=== PATIENT | male | born 1975 | race Two or more races ===

== ENCOUNTER 2016-09-10 11:08 | Inpatient (IN) | payer OTHER ==
[~2016-09-10] VITALS: Ht 180.3 cm; Wt 80.2 kg
[2016-09-10] VITALS (20 sets, daily range): BP systolic 101–127; BP diastolic 58–78; PULSE 64–98; RESP 16–28; Ht 180.3 cm; Wt 80.2 kg
[~2016-09-10 11:08] MED LIST: ROCURONIUM 50 MG INJ ONE; SUCCINYLCHOLINE CHLORIDE 100 MG/5 ML SYG IV ONE
[2016-09-10] MEDS ORDERED: ROPIVACAINE 0.5 % 30 ML VIAL ONE (13:52)
[2016-09-10] MEDS ORDERED: PROPOFOL 20 ML ONE (13:53)
[2016-09-10] MEDS ORDERED: LIDOCAINE 2% (SDV) 5 ML INJ ONE (13:53)
[2016-09-10] MEDS ORDERED: CEFAZOLIN 1 GM INJ ONE (13:56)
--- NOTE | 2016-09-10 14:26 | HPN ---
Date/Time of Note Date/Time of Note DATE: 09/10/16 TIME: 14:25 Interval H&P Admission Note Pt. seen H&P reviewed: No system changes JESSIE HARDING MD Sep 10, 2016 14:26
[2016-09-10] MEDS ORDERED: POLYMYXIN/BACITRACIN 1L IRRIG IRR ONE (15:57)
[2016-09-10] MEDS: SOD CHLORIDE 0.9% 1,000 ML IV SCH (17:28)
[2016-09-10] MEDS ORDERED: OXYCODONE/ACETAMINOPHEN (5/325) TAB PO PRN ×2 (17:30)
[2016-09-10] MEDS ORDERED: DIPHENHYDRAMINE 50 MG INJ IV PRN (17:30)
[2016-09-10] MEDS ORDERED: HYDROmorphONE (0.2 MG/ML) 10ML SYG IV PRN ×2 (17:30)
[2016-09-10] MEDS ORDERED: ONDANSETRON 4 MG INJ IV PRN (17:30)
[2016-09-10] MEDS ORDERED: FENTAnyl 50 MCG/ML VIAL IV PRN ×2 (17:30)
[2016-09-10] MEDS ORDERED: MIDAZOLAM 1 MG/ML 2 ML INJ IV PRN (17:30)
[2016-09-10] MEDS ORDERED: NACL 0.9% 3 ML SYG IV SCH (17:30)
[2016-09-10] MEDS ORDERED: METOCLOPRAMIDE 10 MG INJ IV PRN (17:30)
[2016-09-10] MEDS: MEPERIDINE 25 MG INJ IV PRN ×2 (17:38→21:19)
[2016-09-10] MEDS ORDERED: HYDROCODONE/APAP (5/325) TAB PO PRN (18:00)
--- NOTE | 2016-09-10 18:21 | OPR ---
DATE OF OPERATION: 09/10/2016 PREOPERATIVE DIAGNOSIS: Shoulder impingement syndrome with tear of the rotator cuff. POSTOPERATIVE DIAGNOSIS: Shoulder impingement syndrome with tear of the rotator cuff. OPERATION PERFORMED: 1. Surgical decompression of the right shoulder, including partial acromionectomy and release of th e coracoacromial ligament. 2. Repair of the rotator cuff tear. ANESTHESIA: General anesthesia combined with nerve block. SURGEON: Fco Piña MD PROCEDURE AND FINDINGS: Under anesthesia, the patient was placed in a beach chair position. Usual prep and drape was done exposing the right shoulder. The right shoulder was approached through the oblique incision over the anterolateral aspect of the acromion and by detaching the rotator cuff, th e subacromial space was entered. On entering the subacromial space, it was obvious that there was a tightness in the subacromial space with downward arching acromion. Further exploration revealed th at there indeed was a tear at the junction of the supraspinatus and the subscapularis. First, decom pression of the subacromial space was carried out with partial acromionectomy and release of the cor acoacromial ligament. The subacromial space was further enlarged with the rasps. After enlarging t he subacromial space, exposure was improved, and through this improved exposure the rotator cuff was further examined and there was a V-shaped tear. After freshening up the edge of the margin of the tear, the repair was carried out using interrupted sutures using [employer]. At the end of the repa ir, the deltoid muscle was reattached with 0 Vicryl. Further closure was carried out using 2-0 Vicr yl in subcuticular fashion and final closure was carried out with skin britney. Usual sterile press ure dressings were applied. The patient tolerated the entire procedure very well and was sent to the recovery room in good condi tion. Dictated By: FCO PIPER/CORBIN Conf#: [id number] DID#: [id number]
[2016-09-10] MEDS: CEFAZOLIN 1 GM/50 ML (PMX) 50 ML IVPB SCH (21:18)
[2016-09-11] MEDS: SOD CHLORIDE 0.9% 1,000 ML IV SCH ×3 (00:01→14:59)
[2016-09-11] MEDS: HYDROmorphONE 1 MG/ML SYG IV PRN ×3 (01:51→09:17)
[2016-09-11 05:00] VITALS: BP 122/69; PULSE 78; RESP 18
[2016-09-11] MEDS: CEFAZOLIN 1 GM/50 ML (PMX) 50 ML IVPB SCH ×2 (05:00→14:59)
[2016-09-11 07:59] VITALS: BP 125/76; RESP 16
[2016-09-11] MEDS: HYDROCODONE/APAP (5/325) TAB PO PRN ×2 (16:14→19:50)
[2016-09-11 19:32] VITALS: BP 118/60; RESP 17
== END 2016-09-11 20:30 | disposition home or self-care (01) | DRG 512 ==
LOC: REC 11:08 → MS1 19:45
PROVIDERS: ADMIT Internal Medicine Nephrology; ATTEND Orthopaedic Surgery
PROC: 0RNJ0ZZ Release Right Shoulder Joint, Open Approach (ICD-10-PCS; 2016-09-10)
PROC: 0LQ10ZZ Repair Right Shoulder Tendon, Open Approach (ICD-10-PCS; principal; 2016-09-10 14:00)
DX: M75.101 Unspecified rotator cuff tear or rupture of right shoulder, not specified as traumatic (principal); M75.41 Impingement syndrome of right shoulder
CPT/HCPCS: 88304; 88311; J0330; J0690; J1170; J2175; J2405; J2795; J7030